=== PATIENT | male | born 1980 ===

== ENCOUNTER 2024-10-04 20:44 | Emergency (ER) | payer SELFPAY ==
[2024-10-04] MEDS: Ketorolac 60 MG/2 ML SDV IM ONE (22:02)
== END 2024-10-05 01:00 | disposition home or self-care (01) ==
LOC: JD.ED 20:44
DX: R10.31 Right lower quadrant pain (principal); W13.2XXA Fall from, out of or through roof, initial encounter
CPT/HCPCS: 76705; 96372; 99283; J1885